=== PATIENT | male | born 1935 | race Caucasian/White ===

== ENCOUNTER → 2017-04-09 | Outpatient (CLI) | payer OTHER, MEDICARE ==
[~2017-04-09] MED LIST: IOPAMIDOL (ISOVUE-300) 100 ML BTL ONE
== END ==
LOC: CIMAGING 08:59
PROVIDERS: ATTEND Specialist
DX: N20.0 Calculus of kidney (principal); N28.1 Cyst of kidney, acquired; N40.0 Benign prostatic hyperplasia without lower urinary tract symptoms; J43.9 Emphysema, unspecified; Z95.5 Presence of coronary angioplasty implant and graft
CPT/HCPCS: 74178; Q9967

== ENCOUNTER → 2017-04-26 | Outpatient (CLI) | payer OTHER, MEDICARE | LOC: FIMAGING 10:04 | PROVIDERS: ATTEND Specialist | DX: N20.0 Calculus of kidney (principal) ==

== ENCOUNTER 2017-06-02 11:16 | Day surgery (SDC) | payer OTHER, MEDICARE ==
[2017-06-02] MEDS ORDERED: NALOXONE HCL 0.4 MG/ML INJ IVP PRN (11:45)
[2017-06-02] MEDS ORDERED: FLUMAZENIL 0.5 MG/5 ML MDV IVP PRN (11:45)
[2017-06-02] MEDS ORDERED: HEPARIN 10,000 UNIT/10 ML MDV (1,000 UNIT/ML) IVP PRN (11:45)
[2017-06-02] MEDS ORDERED: ALTEPLASE 2 MG VIAL IVP PRN (11:45)
[2017-06-02] MEDS ORDERED: MEPERIDINE 25 MG/ML SYR IVP PRN (11:45)
[2017-06-02] MEDS ORDERED: cefTRIAXone 1 GM in STERILE WATER INJ 10 ML IV ONE (11:45)
[2017-06-02] MEDS ORDERED: GLUCAGON HCL 1 MG VIAL IVP PRN (11:45)
[2017-06-02] MEDS ORDERED: NS 1,000 ML IV SCH (11:45)
[2017-06-02] MEDS ORDERED: PROTAMINE SULFATE 50 MG/5 ML VIAL IVP PRN (11:45)
[2017-06-02] MEDS ORDERED: ceFAZolin 2 GM/SWFI 20 ML SYR IVP ONE (12:13)
[2017-06-02] MEDS: MIDAZOLAM 2 MG/2 ML VIAL IVP PRN ×2 (12:50→15:29)
[2017-06-02] MEDS: fentaNYL 100 MCG/2 ML INJ IVP PRN ×2 (12:50→15:29)
--- NOTE | 2017-06-02 13:44 | PDGENHP ---
History & Physical Chief Complaint: LT RENAL STONE History of Present Illness: NEW LT RENAL STONE Pertinent Past, Social, Family History: COLON RESECTION, AORTIC ANEURYSM, APPENDECTOMY Relevant Physical Exam: CT SCAN REVIEWED. Cardiorespiratory Assessment: RRR, CTA
[2017-06-02] MEDS ORDERED: ceFAZolin 2 GM/SWFI 2 GM/20 ML SYR IVP ONE (13:45)
--- NOTE | 2017-06-02 13:45 | PDPROPOC ---
Sedation Plan of Care Sedation Plan of Care: vital signs stable, mental status noted, patient educated of risks, benefits, alternatives, patient can tolerate sedation ASA Classification: ASA 2 Planned drugs: fentanyl, midazolam Mallampati Score: Class 1 Mallampati Reference Image: Patient passed 3-3-2 rule?: Yes
[2017-06-02] MEDS ORDERED: MIDAZOLAM 2 MG/2 ML VIAL ONE (15:03)
[2017-06-02] MEDS ORDERED: fentaNYL 100 MCG/2 ML INJ ONE (15:03)
[2017-06-02] MEDS ORDERED: ONDANSETRON 4 MG/2 ML VIAL IVP PRN (15:34)
[2017-06-02] MEDS ORDERED: ACETAMINOPHEN 325 MG TAB PO PRN (15:34)
[2017-06-02] MEDS ORDERED: oxyCODONE IR 5 MG TAB PO PRN (15:34)
--- NOTE | 2017-06-02 15:36 | PDRADPN ---
Radiology Procedure Note Date of Procedure: 06/02/17 Radiologist: Akiko Oreilly Anesthesia: IV Sedation Pre-op Diagnosis: LT renal stone Post-op Diagnosis: same Indication: Obstruction Procedure: LT perc neph Finding(s): Partially obstructing LT pelvic stone. Inf/Abcess present in the surg proc area at time of surgery?: No Drains: Nephrostomy (8Fr)
[2017-06-02 16:12] VITALS: TEMP 97.3
[2017-06-02] MEDS ORDERED: LIDOCAINE 1% 300 MG/30 ML SDV ONE (16:24)
[2017-06-02] MEDS ORDERED: IOPAMIDOL (ISOVUE-300) 100 ML BTL ONE (16:24)
[2017-06-02 17:05] VITALS: O2SAT 92
[2017-06-02 17:20] VITALS: BP 137/86; PULSE 68; RESP 14
== END 2017-06-02 18:04 | disposition home or self-care (01) ==
LOC: FIMAGING 11:16
PROVIDERS: ATTEND Specialist
PROC: 0T9130Z Drainage of Left Kidney with Drainage Device, Percutaneous Approach (ICD-10-PCS; principal; 2017-06-02 15:42)
DX: N20.0 Calculus of kidney (principal); R31.29 Other microscopic hematuria; N13.30 Unspecified hydronephrosis; R33.9 Retention of urine, unspecified; R39.198 Other difficulties with micturition; N40.1 Benign prostatic hyperplasia with lower urinary tract symptoms
CPT/HCPCS: 50432; 99152; C1729; C1769; J0690; J0696; J2250; J2310; J3010; Q9967

== ENCOUNTER 2017-06-03 05:39 | Observation (INO) | payer OTHER, MEDICARE ==
[2017-06-03] MEDS ORDERED: levOFLOXACIN 500 MG/DEXTROSE 100 ML IV ONE (06:07)
[2017-06-03] MEDS ORDERED: LR 1,000 ML IV ONE (06:52)
--- NOTE | 2017-06-03 06:55 | PDANEPAE ---
ANE Past Medical History - Cardiovascular History Hx Hypertension: No Hx Arrhythmias: No Hx Chest Pain: No Hx Coronary Artery / Peripheral Vascular Disease: No Hx CHF / Valvular Disease: No Hx Palpitations: No - Pulmonary History Hx COPD: Yes Hx Asthma/Reactive Airway Disease: No Hx Recent Upper Respiratory Infection: No Hx Oxygen in Use at Home: No Hx Sleep Apnea: No Sleep Apnea Screening Result - Last Documented: Negative Pulmonary History Comment: always low SaO2 88-92% - Neurologic History Hx Cerebrovascular Accident: No Hx Seizures: No Hx Dementia: No - Endocrine History Hx Diabetes: No Hypothyroid: No Hyperthyroid: No Obesity: no - Renal History Hx Renal Disorders: Yes Renal History Comment: kidney stone - Liver History Hx Hepatic Disorders: No - Neurological & Psychiatric Hx Hx Neurological and Psychiatric Disorders: No 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 - Chronic Pain History Chronic Pain: No - Surgical History Prior Surgeries: colon resection, aortic aneurysm repair, appendectomy ANE Review of Systems Review of Systems: - Exercise capacity METS (RN): 4 METS ANE Patient History - Allergies Allergies/Adverse Reactions: No Known Allergies Allergy (Verified 06/03/17 06:08) - Home Medications Home Medications: Finasteride [Proscar 5 MG (*)] 5 mg PO DAILY 05/20/17 [Last Taken 06/01/17] Tamsulosin HCl [Flomax 0.4 MG (*)] 0.4 mg PO DAILY #0 06/02/17 [Last Taken 06/01] - NPO status NPO Since - Liquids (Date): 06/02/17 NPO Since - Liquids (Time): 18:00 NPO Since - Solids (Date): 06/02/17 NPO Since - Solids (Time): 18:00 - Anes Hx Anes Hx: no prior problems - Smoking Hx Smoking Status: Former smoker - Alcohol Use Alcohol Use: Rarely - Family Anes Hx Family Anes Hx: neg - N/A Family Hx Anesthesia Complications: none ANE Labs/Vital Signs - Vital Signs Blood Pressure: 130/71 Heart Rate: 76 Respiratory Rate: 16 O2 Sat (%): 88 Height: 182.88 cm Weight: 79.379 kg ANE Physical Exam - Airway Neck exam: FROM Mallampati Score: Class 2 Mouth exam: dentures - Pulmonary Pulmonary: no rales or rhonchi, reduced air movement - Cardiovascular Cardiovascular: regular rate and rhythym, no murmur, rub, or gallop - ASA Status ASA Status: III ANE Anesthesia Plan Anesthesia Plan: general endotracheal anesthesia Total IV Anesthesia: No
[2017-06-03] MEDS ORDERED: MINERAL OIL 10 ML VIAL ONE (07:06)
[2017-06-03] MEDS ORDERED: IOPAMIDOL (ISOVUE-300) 100 ML BTL ONE (07:07)
[2017-06-03] MEDS ORDERED: PROPOFOL 200 MG/20 ML VIAL ONE (07:21)
[2017-06-03] MEDS ORDERED: fentaNYL 100 MCG/2 ML INJ ONE (07:21)
[2017-06-03] MEDS ORDERED: PROPOFOL/EMULSION 500 MG/50 ML BOTTLE IV ONE (07:21)
[2017-06-03] MEDS ORDERED: REMIFENTANIL HCL 1 MG VIAL ONE (07:21)
[2017-06-03] MEDS ORDERED: ROCURONIUM 50 MG/5 ML VIAL ONE (07:25)
[2017-06-03] MEDS ORDERED: LIDOCAINE 2% 5 ML SDV ONE (07:26)
[2017-06-03] MEDS ORDERED: DEXAMETHASONE 4 MG/ML VIAL ONE (08:05)
--- NOTE | 2017-06-03 08:08 | PDHPUP ---
History & Physical Update H&P update statement: This history and physical update is based on an assessment of the patient which was completed after admission or registration (within 24 hours), but prior to the surgery/procedure. H&P update: no change in patient's condition since H&P completed
[2017-06-03] MEDS ORDERED: ALBUTEROL 3 ML DEYVIAL IH PRN (08:10)
[2017-06-03] MEDS ORDERED: ONDANSETRON 4 MG/2 ML VIAL IVP PRN ×2 (08:10→10:33)
[2017-06-03] MEDS ORDERED: fentaNYL 100 MCG/2 ML INJ IVP PRN (08:10)
[2017-06-03] MEDS ORDERED: PHENYLEPHRINE HCL 100 MCG/ML SYR IVP PRN (08:10)
[2017-06-03] MEDS ORDERED: NALOXONE HCL 0.4 MG/ML INJ IVP PRN (08:10)
[2017-06-03] MEDS ORDERED: oxyCODONE IR 5 MG TAB PO PRN (08:10)
[2017-06-03] MEDS ORDERED: PROMETHAZINE HCL 25 MG/ML INJ IVP PRN ×2 (08:10→10:33)
[2017-06-03] MEDS ORDERED: LR 500 ML IV PRN (08:10)
[2017-06-03] MEDS ORDERED: ACETAMINOPHEN 500 MG TAB PO PRN (08:10)
[2017-06-03] MEDS ORDERED: HYDROCODONE/APAP 5/325 TAB PO PRN (08:10)
[2017-06-03] MEDS ORDERED: epHEDrine SULFATE 10 MG/ML SYR IVP PRN (08:10)
[2017-06-03] MEDS ORDERED: PHENYLEPHRINE HCL 100 MCG/ML SYR ONE ×2 (08:19→09:43)
[2017-06-03] MEDS ORDERED: NEOSTIGMINE METHYLSULFATE 3 MG/3 ML SYR ONE (10:11)
[2017-06-03] MEDS ORDERED: GLYCOPYRROLATE 0.2 MG/1 ML VIAL ONE ×3 (10:11)
--- NOTE | 2017-06-03 10:25 | PDRADPN ---
Radiology Procedure Note Date of Procedure: 06/03/17 Radiologist: Devaughn Darling Founder And Chief Technical Officer(s): Seth Melton Anesthesia: GET(General Endotracheal) Pre-op Diagnosis: obstructive calculus Post-op Diagnosis: same Indication: PCNL access Procedure: dilation of nephrostomy tract Finding(s): nondilated system, 2cm calculus obstructing UPJ Inf/Abcess present in the surg proc area at time of surgery?: No EBL: Minimal Complications: none Drains: Nephrostomy
--- NOTE | 2017-06-03 10:32 | POSTOPPROG ---
Post Op Note Date of Operation: 06/03/17 Surgeon: Melvin Melton (# [id number]) Anesthesia: GET(General Endotracheal) Pre-op Diagnosis: 1.7 cm left renal pelvic calculus Post-op Diagnosis: 1.7 cm left renal pelvic calculus Procedure: Cysto, Left RGP w/ ureteral catheterization, PCNL w/ fluoro < 1 hr., neph. Findings: See op note Inf/Abcess present in the surg proc area at time of surgery?: No EBL: 100-500 (150 cc) Complications: None Drains: Nephrostomy (14 Fr. left neph. tube) Specimen(s): Left renal calculus fragments
[2017-06-03] MEDS ORDERED: HYDROmorphone HCL/NS 0.5 MG/ML SYR IVP PRN (10:33)
--- NOTE | 2017-06-03 11:59 | POSTANESTH ---
Post Anesthetic Evaluation Cardiovascular Status: Normal, Stable Respiratory Status: Similar to Pre-op Cond. Level of Consciousness/Mental Status: Can Participate in Eval Pain Control: Adequate, Prn Tx Ordered Nausea/Vomiting Control: Adequate, Prn Tx Ordered Complications Possibly Related to Anesthesia: None Noted
[2017-06-03] MEDS: D5W 1/2 NS 1,000 ML IV SCH ×2 (12:23→22:07)
[2017-06-03] MEDS: HYDROCODONE/APAP 10/325 TAB PO PRN (12:46)
[2017-06-03] MEDS: TAMSULOSIN HCL 0.4 MG CAP PO SCH (12:46)
--- NOTE | 2017-06-03 12:51 | GOP ---
[f rep st] OPERATIVE REPORT DATE OF OPERATION: 06/03/2017 SURGEON: Melvin Melton MD ANESTHESIA: General endotracheal. PREOPERATIVE DIAGNOSIS: Approximately 1.7 cm left renal pelvic calculus. POSTOPERATIVE DIAGNOSIS: Approximately 1.7 cm left renal pelvic calculus. PROCEDURE PERFORMED: 1. Cystourethroscopy, left retrograde pyelography. 2. Left ureteral catheterization with balloon occlusion catheter. 3. Left-sided percutaneous nephrostolithotomy with fluoroscopic guidance, less than 1 hour. 4. Left-sided nephrostomy tube placement. FINDINGS: 1. Large left renal pelvic calculus. 2. Smaller than normal caliber left renal pelvis. A vast majority of the renal pelvic volume was occupied by the calculus. SPECIMENS: Left renal calculus fragments. ESTIMATED BLOOD LOSS: Approximately 150 cc. INDICATIONS: This gentleman was recently found to have a large left renal pelvic calculus which has substantially increased in size over the last 1-2 years. It was recommended that he undergo intraoperative management. The indications for the procedures, as well as potential risks and complications, were discussed with the patient preoperatively. He appeared to understand, his questions were answered, and he wished to proceed. Written informed surgical consent was thereafter obtained. DESCRIPTION OF PROCEDURE: The patient had undergone left-sided nephrostomy tube placement in Interventional Radiology yesterday as an outpatient. The patient was brought to the operating room and placed in the supine position. He was administered general endotracheal anesthesia without complication. He was then placed in the dorsal lithotomy position utilizing Kevin stirrups. The genital area was sterilely prepped with Betadine scrub and paint then draped in the usual sterile fashion. Cystoscopy was performed with a 30-degree lens through a 22-Micronesian sheath. Anterior urethra revealed no abnormalities. Posterior urethra revealed significant circumferential BPH with some median lobe extension into the bladder. The bladder trigone was noted to be unremarkable, other than being encroached upon by the prominent median lobe. Ureteral orifices were normal in regards to shape and position along the trigone. The bladder was moderately to heavily trabeculated with numerous shallow diverticula. I was ultimately able to identify the left ureteral orifice. It was cannulated with a 5-Micronesian open-ended ureteral catheter. This was used to opacify the left ureter and renal collecting system with contrast. Under C-arm active fluoroscopy, the ureter was noted to be unremarkable. There was a sizable filling defect in a small caliber left renal pelvis, as well as a nephrostomy tube exiting through the lower pole with a pigtail positioned in the renal pelvis. The renal collecting system was notable for some mild dilation in general. I then passed a 0.028 superstiff guidewire through the ureteral catheter and advanced it into the renal collecting system as noted fluoroscopically. The guidewire was kept in place while removing the cystoscope and the 5-Micronesian open-ended ureteral catheter. A balloon occlusion catheter was then placed over the superstiff guidewire using fluoroscopic guidance and positioned just distal to the ureteropelvic junction. The balloon associated with the occlusion catheter was then inflated with 1.5 cc of contrast material. This completed the retrograde portion of the procedure. A 16-Micronesian Ramos catheter was then placed to gravity drainage and connected to bag drainage without complication. The balloon occlusion catheter was secured to the Ramos with several strips of Steri-Strips so that it would not be easily dislodged. The patient was then carefully transferred into the prone position. All appropriate pressure points were padded. The left nephrostomy tube site, including the tube, was then prepped and draped in standard fashion. Dr. Darling from Interventional Radiology then proceeded to place a working nephroscopic sheath using the nephrostomy tube as access to the collecting system. He will dictate this separately. He also placed 2 safety guidewires down into the distal ureter and bladder. I then inserted the rigid nephroscope using normal saline irrigation. I was ultimately able to identify the large renal pelvic calculus. The renal pelvis was noted to be smaller in caliber than normal. Once the stone was identified, an ultrasonic Lithotripter was then used to fragment the calculus and rigid grasping forceps were used through the nephroscope to extract the fragments. Once no further fragments were seen, I removed the rigid nephroscope and inserted a flexible cystoscope and performed nephroscopy using intermittent fluoroscopic guidance. I was able identify the upper pole calices. There were no remaining stones noted there. There was 1 small calculus fragment at the ureteropelvic junction. This was removed unremarkably with a Nitinol stone basket. It should be mentioned that the renal collecting system mucosa was fairly inflamed and friable. At this point, I felt confident there were no remaining significant calculus fragments within the left kidney (also taking into consideration his preoperative noncontrast CT scan findings). I then proceeded with placement of a nephrostomy tube. The working nephroscopic sheath was removed while keeping both guidewires in place. The balloon on the occlusion catheter was deflated. A 14-Micronesian nephrostomy tube was then placed over one of the guidewires. The tip of the nephrostomy tube was advanced into the proximal ureter. I then deployed the pigtail and was able to place it nicely within the renal pelvis as noted fluoroscopically and with injection of contrast. The urine return at this point was blood tinged. There was also some bleeding noted from the fascial dilation of the nephrostomy tract. Contrast was again injected through the nephrostomy tube to confirm proper placement within the renal pelvis. I then placed manual pressure for several minutes over the left-sided back incision area for hemostatic purposes. After doing so, I used 2-0 silk suture to secure the nephrostomy tube to the skin. This 2-0 silk suture was utilized to grab a deep bite through the subcutaneous tissue to aid with hemostasis. At this point, there was bloody drainage from the nephrostomy tube, but it did irrigate nicely with injection of saline. The nephrostomy tube was secured to the skin as well with a ski slope dressing, 4x4s, and Tegaderm. It was connected to bag drainage. The patient was then turned back over into the supine position carefully. He was awakened, extubated, transferred to his bed, then taken to the recovery room. He tolerated the procedure well overall. It should also be mentioned that prior to extubation, the balloon occlusion catheter that had been placed in a retrograde fashion was removed while keeping the indwelling Ramos catheter in place. COMPLICATIONS: None. DISPOSITION: He was transferred to the recovery room in stable condition and will be admitted for postoperative care. /[id number]/MODL MTDD
--- NOTE | 2017-06-03 14:25 | ASMTCMCOM ---
CM Note CM Note Notes: Pt admitted w/renal calculus, went to surgery today. Discussed w/RN- she said pt has good support system, he lives at home w/; she said he may possibly have O2 needs at dc. CM will follow. Date Signed: 06/03/2017 02:24 PM Electronically Signed By:Rhoda Sauer RN
[2017-06-04] MEDS: HYDROCODONE/APAP 10/325 TAB PO PRN ×2 (05:02→13:12)
--- NOTE | 2017-06-04 08:28 | SOAPPROG ---
SOAP Progress Note Assessment/Plan: Assessment: POD 1 s/p PCNL - stable. Plan: 1. Check labs (ordered yesterday). 2. Ramos out. 3. Ambulate. 4. Buffcap IV. 5. Hopeful discharge later today. 6. Schedule outpt. nephrostogram and tube removal for early next week. 7. Will have case mgmt assess for any possible discharge needs. Subjective: No complaints. Ramos just removed. Objective: Vital Signs Temp Pulse Resp BP Pulse Ox 36.7 C 70 16 133/93 H 92 06/04/17 04:38 06/04/17 04:38 06/04/17 04:38 06/04/17 04:38 06/04/17 04:38 06/03/17 06/04/17 06/05/17 05:59 05:59 05:59 Intake Total 2050 1218 Output Total 100 2760 150 Balance -100 -710 1068 Physical Exam - Physical Exam General Appearance: WD/WN, alert, no apparent distress Abdomen: non-tender, soft Male Genitalia: normal genitalia Back: Other (nephrostomy dressing c/d/i; neph. tube drainage lightly pink tinged ) Extremities: non-tender Neuro/Psych: alert, normal mood/affect, oriented x 3 ICD10 Worksheet Patient Problems: Problems Problem Status Onset Dehydration Acute MRSA (methicillin resistant Staphylococcus aureus) Acute ~12/03/16 Pneumonia Acute Renal calculus, left Acute
[2017-06-04] MEDS ORDERED: FINASTERIDE 5 MG TAB PO SCH (09:00)
[2017-06-04] MEDS: TAMSULOSIN HCL 0.4 MG CAP PO SCH (09:13)
[2017-06-04 15:20] VITALS: BP 150/77; PULSE 101; RESP 18; TEMP 97.9; O2SAT 90
--- NOTE | 2017-06-04 17:26 | SOAPPROG ---
SOAP Progress Note Assessment/Plan: Assessment: 1. POD 1 s/p PCNL - stable. 2. Postop urinary retention. Plan: 1. Due to retention, will discharge home w/ Ramos & plan on office removal 9 am Wednesday. 2. Outpt. nephrostogram and tube removal for early next week, as scheduled through IR. (d/c summ. # [id number]) Subjective: Per nursing staff, having voiding difficulties w/ PVR > 500 cc. Otherwise doing well. Objective: Vital Signs Temp Pulse Resp BP Pulse Ox 36.6 C 101 H 18 150/77 H 90 L 06/04/17 15:18 06/04/17 15:18 06/04/17 15:18 06/04/17 15:18 06/04/17 15:18 Laboratory Results 06/04/17 09:25 06/04/17 09:25 06/03/17 06/04/17 06/05/17 05:59 05:59 05:59 Intake Total 0 1218 Output Total 100 1531 142 [facility] -100 -710 -207 ICD10 Worksheet Patient Problems: Problems Problem Status Onset Dehydration Acute MRSA (methicillin resistant Staphylococcus aureus) Acute ~12/03/16 Pneumonia Acute Renal calculus, left Acute
--- NOTE | 2017-06-04 18:32 | GDS ---
[f rep st] DISCHARGE SUMMARY ADMITTING DIAGNOSIS: Large left nephrolithiasis. DISCHARGE DIAGNOSES: 1. Large left nephrolithiasis. 2. Postoperative urinary retention. PROCEDURES: Left-sided percutaneous nephrostolithotomy on 06/03/2017. HOSPITAL COURSE: Refer to the operative report for details regarding the surgery. Postoperatively, the patient did well. His Ramos catheter was removed on postoperative day 1. He wa s unable to void sufficiently with elevated postvoid residuals. Therefore, a Ramos catheter was rein serted. The patient was discharged home with this catheter in addition to his left-sided nephrostomy tube. He otherwise did very well from a postoperative standpoint and was ready for discharge on the afternoon of postoperative day 1. He is being discharged on his regular medications as well as [place] p.r.n. pain. He has been given Fo kristy and nephrostomy tube instructions. He will maintain a restricted activity level as mentioned in his discharge instructions. He will maintain a regular diet. Arrangements have been made for him to follow up in Interventional Radiology next week for nephrostogram and nephrostomy tube removal. He will also return to my office on Wednesday at 9 a.m. for Ramos catheter removal. /[id number]/MODL
== END 2017-06-04 17:51 | disposition home or self-care (01) ==
LOC: F3N 05:39 → F1N 11:44
PROVIDERS: ADMIT Specialist; ATTEND Specialist
PROC: 0TC44ZZ Extirpation of Matter from Left Kidney Pelvis, Percutaneous Endoscopic Approach (ICD-10-PCS; principal; 2017-06-03 07:15)
PROC: 0T743DZ Dilation of Left Kidney Pelvis with Intraluminal Device, Percutaneous Approach (ICD-10-PCS; principal; 2017-06-03 07:15)
PROC: 0TF48ZZ Fragmentation in Left Kidney Pelvis, Via Natural or Artificial Opening Endoscopic (ICD-10-PCS; principal; 2017-06-03 07:15)
PROC: 0T773ZZ Dilation of Left Ureter, Percutaneous Approach (ICD-10-PCS; 2017-06-03 07:15)
PROC: 0T9B70Z Drainage of Bladder with Drainage Device, Via Natural or Artificial Opening (ICD-10-PCS; 2017-06-04)
DX: N20.0 Calculus of kidney (principal); N99.89 Other postprocedural complications and disorders of genitourinary system; R33.9 Retention of urine, unspecified; N40.0 Benign prostatic hyperplasia without lower urinary tract symptoms; J44.9 Chronic obstructive pulmonary disease, unspecified; Z87.442 Personal history of urinary calculi; Z85.038 Personal history of other malignant neoplasm of large intestine; Z87.891 Personal history of nicotine dependence
CPT/HCPCS: 50081; 50395; 50435; 51702; 52351; 74485; 88300; C1725; C1729; C1769; C1894; J1100; J1956; J2370; J2704; J2710; J3010; Q9967; 82365-90

== ENCOUNTER 2017-06-08 09:49 | Day surgery (SDC) | payer OTHER, MEDICARE ==
[2017-06-08] MEDS ORDERED: NALOXONE HCL 0.4 MG/ML INJ IVP PRN (10:57)
[2017-06-08] MEDS ORDERED: FLUMAZENIL 0.5 MG/5 ML MDV IVP PRN (10:57)
[2017-06-08] MEDS ORDERED: MIDAZOLAM 2 MG/2 ML VIAL IVP PRN (10:57)
[2017-06-08] MEDS ORDERED: fentaNYL 100 MCG/2 ML INJ IVP PRN (10:57)
[2017-06-08] MEDS ORDERED: MEPERIDINE 25 MG/ML SYR IVP PRN (10:57)
[2017-06-08] MEDS ORDERED: NS 1,000 ML IV SCH (11:00)
[2017-06-08] MEDS ORDERED: levOFLOXACIN 500 MG/DEXTROSE 100 ML IV ONE (11:15)
[2017-06-08] MEDS ORDERED: fentaNYL 100 MCG/2 ML INJ ONE (11:25)
[2017-06-08 11:48] VITALS: RESP 18
--- NOTE | 2017-06-08 12:00 | PDGENHP ---
History & Physical Chief Complaint: Nephrolithiasis s/p PCNL History of Present Illness: 81 yo M w right nephrolithiasis s/p PCNL on 06/03/17 who presented this am for tube check and possible pull. On nephrostogram, no contrast seen entering the ureter. Apparent obstruction at level of right UPJ. D /w Dr. Melton by phone. He requests attempt be made to place double-J stent across obstruction. If successful, recommended nephrostomy removal. Also requested Ramos catheter placement. Pertinent Past, Social, Family History: Non-contributory Relevant Physical Exam: Indwelling 14-Fr nephrostomy in place, small blood in the urine collection back, no clots, no CVA TTP Cardiorespiratory Assessment: RRR, normal resp excursions
--- NOTE | 2017-06-08 12:01 | PDPROPOC ---
Sedation Plan of Care Sedation Plan of Care: vital signs stable, mental status noted, patient educated of risks, benefits, alternatives, patient can tolerate sedation ASA Classification: ASA 3 Planned drugs: fentanyl Mallampati Score: Class 2 Mallampati Reference Image: Patient passed 3-3-2 rule?: Yes
[2017-06-08] MEDS ORDERED: IOPAMIDOL (ISOVUE-300) 100 ML BTL ONE ×2 (12:55→13:13)
[2017-06-08] MEDS ORDERED: LIDOCAINE 1% 300 MG/30 ML SDV ONE (12:55)
[2017-06-08 14:02] VITALS: PULSE 68; TEMP 97.9
[2017-06-08] MEDS ORDERED: ONDANSETRON 4 MG/2 ML VIAL IVP PRN (14:17)
[2017-06-08] MEDS ORDERED: ACETAMINOPHEN 325 MG TAB PO PRN (14:17)
--- NOTE | 2017-06-08 14:34 | PDRADPN ---
Radiology Procedure Note Date of Procedure: 06/08/17 Radiologist: Omar Bueno Pre-op Diagnosis: Suspected left UPJ obstruction Post-op Diagnosis: Same Indication: S/p left PCNL, suspecte left UPJ obstructiond Procedure: Left double J-stent placement, nephrostomy exchange Finding(s): See dictated report Inf/Abcess present in the surg proc area at time of surgery?: No EBL: Minimal Complications: No immediate Drains: Nephrostomy (10-Fr left)
[2017-06-08 15:49] VITALS: BP 117/54; O2SAT 91
== END 2017-06-08 15:57 | disposition home or self-care (01) ==
LOC: FIMAGING 09:49
PROVIDERS: ATTEND Specialist
PROC: 0TW530Z Revision of Drainage Device in Kidney, Percutaneous Approach (ICD-10-PCS; principal; 2017-06-08 13:57)
PROC: 0T778DZ Dilation of Left Ureter with Intraluminal Device, Via Natural or Artificial Opening Endoscopic (ICD-10-PCS; principal; 2017-06-08 13:57)
DX: N20.0 Calculus of kidney (principal)
CPT/HCPCS: 50435; 52332; 74425; C1729; C1769; C1894; J1644; J1956; J3010; Q9967

== ENCOUNTER 2017-06-09 09:11 | Emergency (ER) | payer OTHER, MEDICARE ==
[2017-06-09] MEDS ORDERED: LIDOCAINE 1% 300 MG/30 ML SDV ONE (10:17)
--- NOTE | 2017-06-09 10:27 | EDPHY ---
General Time Seen by Provider: 06/09/17 10:22 Narrative: CHIEF COMPLAINT: Right marie wound HISTORY OF PRESENT ILLNESS: Patient presents with complaints of noticing a wound to the right anterior marie. He 1st noticed it on Wednesday. He was lifting up his pants when he noticed it. He does not recall any trauma or injury to the leg. He says that he is very careful and did not scratch it. It is a linear excoriation anteriorly. Minimally painful. He has baseline sensory deficit lower extremity neuro muscular degeneration. He has no chest pain or shortness of breath. He has no swelling of the right leg versus the left. He is here because he is concerned that the wound is present and he does not feel that he injured it. No other associated complaints or modifying factors. REVIEW OF SYSTEMS: Ten systems reviewed and are negative unless otherwise noted in the HPI PCP: Dr. Chavira SPECIALISTS: Urology PAST MEDICAL HISTORY: COPD, BPH, colon resection, aortic aneurysm, renal colic status post nephrostomy tube PAST SURGICAL HISTORY: Recent nephrostomy tube placement with exchange performed here yesterday SOCIAL HISTORY: Nonsmoker. Lives independently with his spouse. Ambulates with a cane FAMILY HISTORY: Noncontributory EXAMINATION General Appearance: Alert, no distress Head: normocephalic, atraumatic Eyes: Pupils equal and round, no conjunctival pallor or injection Cardiovascular: Regular rate and rhythm symmetric radial pulses 2+. Symmetric DP pulses 2+. Symmetric PT pulses 2+. Gastrointestinal: Abdomen is soft and nontender. Left for ostomy tube in place with clean dry dressing. Neurological: A&O, nonfocal, baseline sensory of the lower extremities per patient family. Skin: Warm and dry, no rash. Superficial excoriation to the right anterior marie. Less than 1 cm wide, 6 cm length. No cellulitis or erythema of the lower extremity otherwise. Extremities: Nontender, no pedal edema. Symmetric circumference of the calves. No evidence of DVT. Psychiatric: Mood and affect normal DIFFERENTIAL DIAGNOSES: Including but not limited to excoriation, abrasion, DVT, skin breakdown MDM: 10:45 a.m. Superficial excoriation of the right anterior marie. This is an oblique wound that is very minimal in width, less than 1 cm. It is approximately 6 cm long. It is very localized and acute. There is no circumferential erythema or edema. No palpable cord. No evidence of DVT to lower extremity. I do not feel that there is any signs of trauma or illness that would warrant any further imaging. I did offer an ultrasound of lower extremity but the patient has declined. I feel that DVT is extremely unlikely. I do feel that he is at risk for secondary infection of this excoriation given his history, thus we will place a Mepilex dressing over this. Will discuss wound care for this. I have asked him to contact his primary care physician for wound evaluation. I have asked him to return to the ER should the wound change in presentation. I have asked him to return to ER for any redness of the calf, swelling of the lower extremity or pain. He is comfortable with this plan as is his spouse and daughter at bedside. He is discharged home stable condition. SUPERVISION: This patient was independently evaluated without direct involvement of or examination by the attending physician. - History Smoking Status: Former smoker - Objective Vital Signs: Initial Vital Signs Temperature (C) 98.6 F 06/09/17 09:16 Heart Rate 81 06/09/17 09:16 Respiratory Rate 20 06/09/17 09:16 Blood Pressure 133/77 H 06/09/17 09:16 O2 Sat (%) 88 L 06/09/17 09:16 O2 Delivery Mode Room Air Allergies/Adverse Reactions: No Known Allergies Allergy (Verified 06/09/17 09:14) Home Medications: Medication Instructions Recorded Finasteride [Proscar 5 MG (*)] 5 mg PO DAILY 05/20/17 Tamsulosin HCl [Flomax 0.4 MG (*)] 0.4 mg PO DAILY #0 06/02/17 HYDROcodone/APAP 10/325 [Upperco 1 - 2 tab PO Q6 PRN #15 tab 06/03/17 10/325 (*)] Departure - Departure Disposition: Home, Routine, Self-Care Clinical Impression: Skin excoriation Condition: Good Instructions: Abrasion (ED) Additional Instructions: 1. Daily wound care as discussed 2. Contact your primary care physician today to follow your wound progress 3. ED precautions for any redness of the leg, swelling of the leg, chest pain or shortness of breath Referrals: Stevie Chavira MD [Primary Care Provider] - As per Instructions
[2017-06-09 11:23] VITALS: BP 159/84
== END 2017-06-09 11:23 | disposition home or self-care (01) ==
DX: L98.9 Disorder of the skin and subcutaneous tissue, unspecified (principal); J45.909 Unspecified asthma, uncomplicated; Z87.891 Personal history of nicotine dependence

== ENCOUNTER → 2017-06-11 | Day surgery (SDC) | payer OTHER, MEDICARE | END | disposition home or self-care (01) | LOC: FIMAGING 13:21 | PROVIDERS: ATTEND Radiology Diagnostic Radiology | PROC: BT121ZZ Fluoroscopy of Left Kidney using Low Osmolar Contrast (ICD-10-PCS; principal; 2017-06-11) | PROC: 0TP5X0Z Removal of Drainage Device from Kidney, External Approach (ICD-10-PCS; principal; 2017-06-11) | DX: N20.0 Calculus of kidney (principal) | CPT/HCPCS: Q9967 ==

== ENCOUNTER → 2017-06-21 | Outpatient (CLI) | payer OTHER, MEDICARE | LOC: CIMAGING 09:15 | PROVIDERS: ATTEND Specialist | DX: N20.0 Calculus of kidney (principal); Z96.0 Presence of urogenital implants | CPT/HCPCS: 74176-PO ==

== ENCOUNTER → 2017-08-05 | Outpatient (CLI) | payer OTHER, MEDICARE | LOC: CIMAGING 10:13 | PROVIDERS: ATTEND Specialist | DX: R33.9 Retention of urine, unspecified (principal); N40.0 Benign prostatic hyperplasia without lower urinary tract symptoms; Z87.442 Personal history of urinary calculi | CPT/HCPCS: 76770-PO ==

== ENCOUNTER → 2018-03-03 | Outpatient (CLI) | payer OTHER, MEDICARE | LOC: CIMAGING 10:04 | PROVIDERS: ATTEND Specialist | DX: Z09 Encounter for follow-up examination after completed treatment for conditions other than malignant neoplasm (principal); Z87.442 Personal history of urinary calculi | CPT/HCPCS: 74018-PO ==